=== PATIENT | male | born 1970 | race Asian ===

== ENCOUNTER 2018-03-29 00:59 | Emergency (ER) | payer OTHER ==
[~2018-03-29] VITALS: Ht 185.4 cm; Wt 102.5 kg
[2018-03-29 01:05] VITALS: Ht 185.4 cm; Wt 102.5 kg
[2018-03-29 02:24] VITALS: BP 154/93
== END 2018-03-29 02:08 | disposition home or self-care (01) ==
LOC: ED 00:59
DX: L03.115 Cellulitis of right lower limb (principal); E78.00 Pure hypercholesterolemia, unspecified
CPT/HCPCS: 82962; J0690; Q0092